=== PATIENT | male | born 1995 | race Caucasian/White ===

== ENCOUNTER 2024-10-12 00:22 | Emergency (ER) | payer SELFPAY ==
[~2024-10-12] VITALS: Ht 182.9 cm; Wt 84.0 kg
[2024-10-12 00:25] VITALS: O2SAT 98
[2024-10-12] MEDS ORDERED: DIVA250T4 MT (00:53)
[2024-10-12 01:00] VITALS: BP 134/87; PULSE 72; RESP 18; TEMP 36.3; O2SAT 99
== END 2024-10-12 01:00 | disposition home or self-care (01) ==
LOC: ER 00:32
DX: Z76.0 Encounter for issue of repeat prescription (principal)
CPT/HCPCS: 99283